=== PATIENT | male | born 1990 | race African-American/Black ===

== ENCOUNTER 2018-06-11 08:24 | Emergency (ER) | payer SELFPAY ==
[2018-06-11] MEDS ORDERED: CEFTRIAXONE INJ 250 MG VIAL IM ONE (09:02)
[2018-06-11] MEDS ORDERED: LIDOCAINE 1% INJ-PF (10 MG/ML) 30 ML SDV INJ ONE (09:03)
[2018-06-11] MEDS ORDERED: AZITHROMYCIN 250 MG TABLET PO ONE (09:03)
[2018-06-11 10:11] LABS: APPEARANCE,URINE CLOUDY; BILIRUBIN,URINE NEGATIVE (NEGATIVE); COLOR,URINE YELLOW; GLUCOSE, URINE NEGATIVE (NEGATIVE); KETONES,URINE NEGATIVE (NEGATIVE); LEUKOCYTE ESTERASE,URINE LARGE (NEGATIVE); NITRITE,URINE NEGATIVE (NEGATIVE); PROTEIN,URINE NEGATIVE (NEGATIVE); URINE SPECIFIC GRAVITY 1.028
--- NOTE | 2018-06-11 10:11 | ER Document Report ---
HPI - HPI Patient complains to provider of: Penile discharge Onset: Other - 4 days Onset/Duration: Persistent Quality of pain: Burning Pain Level: 4 Context: Patient complains of burning with urination and penile discharge. Patient states he is worried he may have gonorrhea. Associated Symptoms: denies: Fever, Nausea, Vomiting Exacerbated by: Denies Relieved by: Denies Similar symptoms previously: Yes Recently seen / treated by doctor: No - ROS ROS below otherwise negative: Yes Systems Reviewed and Negative: Yes All other systems reviewed and negative - CONSTITUTIONAL Constitutional: DENIES: Fever, Chills - EENT EENT: DENIES: Sore Throat - URINARY Urinary: REPORTS: Dysuria - REPRODUCTIVE Notes: Penile discharge - DERM Skin Color: Normal Skin Problems: None Past Medical History - General Information source: Patient - Social History Smoking Status: Never Smoker Chew tobacco use (# tins/day): No Frequency of alcohol use: None Drug Abuse: None Occupation: [employer] Family History: Reviewed & Not Pertinent Patient has suicidal ideation: No Patient has homicidal ideation: No Endocrine Medical History: Denies: Hx Diabetes Mellitus Type 1, Hx Diabetes Mellitus Type 2 Renal/ Medical History: Denies: Hx Peritoneal Dialysis Musculoskeletal Medical History: Reports Hx Musculoskeletal Deformity, Reports Hx Musculoskeletal Trauma Skin Medical History: Reports Hx Cellulitis Traumatic Medical History: Reports: Hx Fractures Past Surgical History: Reports: Hx Orthopedic Surgery - L knee surgery - Immunizations Immunizations up to date: Yes Hx Diphtheria, Pertussis, Tetanus Vaccination: Yes - 2011-per patient Vertical Provider Document - CONSTITUTIONAL Agree With Documented VS: Yes Exam Limitations: No Limitations General Appearance: WD/WN, No Apparent Distress - INFECTION CONTROL TRAVEL OUTSIDE OF THE [place] IN LAST 30 DAYS: No - HEENT HEENT: Atraumatic, Normocephalic - NECK Neck: Normal Inspection, Supple - RESPIRATORY Respiratory: Breath Sounds Normal, No Respiratory Distress - CARDIOVASCULAR Cardiovascular: Regular Rate, Regular Rhythm - GI/ABDOMEN Gastrointestinal: Abdomen Soft, Abdomen Non-Tender - REPRODUCTIVE Male Genitalia: Normal Inspection Notes: Normal cremasteric reflex, no obvious penile discharge, no inguinal lymphadenopathy. RN as standby - BACK Back: Normal Inspection - MUSCULOSKELETAL/EXTREMETIES Musculoskeletal/Extremeties: MAEW, FROM - NEURO Level of Consciousness: Awake, Alert, Appropriate Motor/Sensory: No Motor Deficit - DERM Integumentary: Warm, Dry, No Rash Course - Vital Signs Vital signs: Temp Pulse Resp BP Pulse Ox 97.4 F 59 L 12 128/71 H 99 06/11/18 08:28 06/11/18 08:28 06/11/18 08:28 06/11/18 08:28 06/11/18 08:28 - Laboratory Laboratory results interpreted by me: 06/11/18 14:49 Labs- Entire Visit 06/11/18 06/11/18 09:45 09:45 Urine Color YELLOW Urine Appearance CLOUDY Urine pH 6.0 Ur Specific [place] 1.028 Urine Protein NEGATIVE Urine Glucose (UA) NEGATIVE Urine Ketones NEGATIVE Urine Blood NEGATIVE Urine Nitrite NEGATIVE Urine Bilirubin NEGATIVE Urine Urobilinogen 4.0 H Ur Leukocyte Esterase LARGE H Urine WBC (Auto) >182 Urine RBC (Auto) 13 Urine Mucus (Auto) MOD Urine Ascorbic Acid NEGATIVE Chlamydia DNA (PCR) NOT DETECTED N.gonorrhoeae DNA (PCR) DETECTED H Discharge - Discharge Clinical Impression: Penile discharge, Concern about STD in male without diagnosis UTI (urinary tract infection) Qualifiers: Urinary tract infection type: site unspecified Hematuria presence: without hematuria Qualified Code(s): N39.0 - Urinary tract infection, site not specified Condition: Stable Disposition: HOME, SELF-CARE Instructions: Azithromycin ([facility]), Rocephin ([facility]) Additional Instructions: Return immediately for any new or worsening symptoms Followup with your primary care provider, call tomorrow to make a followup appointment Cultures are pending, we will call if you need any different treatment Prescriptions: Doxycycline Hyclate 100 mg PO BID #20 capsule Forms: Return to Work [facility] - Follow up as needed
[2018-06-11 11:02] VITALS: BP 126/74
[2018-06-11 11:36] LABS: CHLAM PCR NOT DETECTED (NOT DETECT); GON PCR DETECTED (NOT DETECT)
== END 2018-06-11 11:04 | disposition home or self-care (01) ==
LOC: ER 08:24
DX: N39.0 Urinary tract infection, site not specified (principal); R36.9 Urethral discharge, unspecified; R30.9 Painful micturition, unspecified; Z20.2 Contact with and (suspected) exposure to infections with a predominantly sexual mode of transmission
CPT/HCPCS: 99283; 96372; 87086; 81001; 87491; 87591; J3490; J0696

== ENCOUNTER 2020-06-16 17:56 | Emergency (ER) | payer SELFPAY ==
--- NOTE | 2020-06-16 20:28 | ER Document Report ---
ED Medical Screen (RME) - General Stated Complaint: SIDE AND GROIN PAIN Time Seen by Provider: 06/16/20 20:19 Mode of Arrival: Ambulatory Information source: Patient Notes: 29-year-old male patient presents emergency department chief complaint of left lower quadrant abdominal pain that radiates down into his left testicle. Patient reports this pain has been intermittent over the last week. He states that he was tackled playing football and he believes the person's knee went into his left lower quadrant. He denies any nausea, vomiting, diarrhea. Patient reports there is no pain right now but if he moves specific ways it hurts. Exam deferred until patient is in a room. However patient is in no acute distress and is alert and oriented and answering all questions appropriately. I have greeted and performed a rapid initial assessment of this patient. A comprehensive ED assessment and evaluation of the patient, analysis of test results and completion of the medical decision making process will be conducted by additional ED providers. I have specifically instructed the patient or family members with the patient to immediately return to any nursing staff should anything change in the patient's condition or with their chief complaint. TRAVEL OUTSIDE OF THE [place] IN LAST 30 DAYS: No - Related Data Allergies/Adverse Reactions: No Known Allergies Allergy (Verified 06/11/18 08:25) Past Medical History - Social History Family history: DM, Hypertension. denies: Arthritis, CAD, CVA, Hyperlipidemia, Malignancy, Thyroid Disfunction Endocrine Medical History: Denies: Hx Diabetes Mellitus Type 1, Hx Diabetes Mellitus Type 2 Renal/ Medical History: Denies: Hx Peritoneal Dialysis Musculoskeltal Medical History: Reports Hx Musculoskeletal Deformity, Reports Hx Musculoskeletal Trauma Skin Medical History: Reports Hx Cellulitis Traumatic Medical History: Reports: Hx Fractures Past Surgical History: Reports: Hx Orthopedic Surgery - L knee surgery - Immunizations Immunizations up to date: Yes Hx Diphtheria, Pertussis, Tetanus Vaccination: Yes - 2011-per patient Physical Exam - Vital signs Vitals: Temp Pulse Resp BP Pulse Ox 98.1 F 75 16 125/72 97 06/16/20 18:47 06/16/20 18:47 06/16/20 18:47 06/16/20 18:47 06/16/20 18:47 Course - Vital Signs Vital signs: Temp Pulse Resp BP Pulse Ox 98.1 F 75 16 125/72 97 06/16/20 18:47 06/16/20 18:47 06/16/20 18:47 06/16/20 18:47 06/16/20 18:47
[2020-06-16 21:08] LABS: APPEARANCE,URINE CLEAR; BILIRUBIN,URINE NEGATIVE (NEGATIVE); COLOR,URINE YELLOW; GLUCOSE, URINE NEGATIVE (NEGATIVE); KETONES,URINE NEGATIVE (NEGATIVE); LEUKOCYTE ESTERASE,URINE NEGATIVE (NEGATIVE); NITRITE,URINE NEGATIVE (NEGATIVE); PROTEIN,URINE NEGATIVE (NEGATIVE); URINE SPECIFIC GRAVITY 1.031
--- NOTE | 2020-06-16 21:22 | RADIOLOGY REPORT (SQ) ---
EXAM DESCRIPTION: US SCROTUM COMPLETED DATE/TME: 06/16/2020 20:24 CLINICAL HISTORY: 29 years, Male, left testicular and left lower quadrant pain after football injury COMPARISON: None. TECHNIQUE: LIMITATIONS: None. FINDINGS: There are no focal masses within the testicles. No evidence of testicular hematoma. No evidence of testicular torsion. There is bilateral testicular microlithiasis. There is a small left hydrocele. No evidence of epididymitis. There is a small right epididymal cyst. IMPRESSION: Bilateral testicular microlithiasis. Small left hydrocele. copyright 2010 [employer]- All Rights Reserved
[2020-06-16] MEDS ORDERED: HYDROCODONE/ACETAMINOPHEN 5-325 MG (6 TAB/ER DISP) PO PRN (23:43)
--- NOTE | 2020-06-16 23:46 | ER Document Report ---
ED GI/ - General Chief Complaint: Flank Pain Stated Complaint: SIDE AND GROIN PAIN Time Seen by Provider: 06/16/20 20:19 Primary Care Provider: KEVIN BORJAS [Provider Group] - 06/19/20 Mode of Arrival: Ambulatory Notes: Patient is a 29-year-old male who presents emergency department with a chief complaint of left lateral and side pain that radiates down to his left testicle. Patient states that about 5 to 6 days ago he is playing football for [employer] team and got hit on his left lateral hip. Patient states that since then, he has had on and off pain that starts in his left hip and radiates down to his left testicle. Patient is able to urinate. TRAVEL OUTSIDE OF THE [place] IN LAST 30 DAYS: No - Related Data Allergies/Adverse Reactions: No Known Allergies Allergy (Verified 06/11/18 08:25) Past Medical History - General Information source: Patient - Social History Smoking Status: Unknown if Ever Smoked Chew tobacco use (# tins/day): No Frequency of alcohol use: None Drug Abuse: None Family History: Reviewed & Not Pertinent Patient has homicidal ideation: No Endocrine Medical History: Denies: Hx Diabetes Mellitus Type 1, Hx Diabetes Mellitus Type 2 Renal/ Medical History: Denies: Hx Peritoneal Dialysis Musculoskeletal Medical History: Reports Hx Musculoskeletal Deformity, Reports Hx Musculoskeletal Trauma Skin Medical History: Reports Hx Cellulitis Traumatic Medical History: Reports: Hx Fractures Past Surgical History: Reports: Hx Orthopedic Surgery - L knee surgery - Immunizations Immunizations up to date: Yes Hx Diphtheria, Pertussis, Tetanus Vaccination: Yes - 2011-per patient Review of Systems - Review of Systems Notes: REVIEW OF SYSTEMS: CONSTITUTIONAL : Denies recent illness. Denies recent unintentional weight loss. Denies fever, chills, or sweats. EENT: Denies eye, ear, throat, or mouth pain, discharge, or symptoms. Denies nasal or sinus congestion. CARDIOVASCULAR: Denies chest pain. RESPIRATORY: Denies shortness of breath, cough, congestion, difficulty breathing, or wheezing. GASTROINTESTINAL: Denies nausea, vomiting, and diarrhea. Denies constipation. See HPI. GENITOURINARY: See HPI. MUSCULOSKELETAL: Denies neck and back pain. Denies joint pain or swelling. SKIN: Denies rash, itchiness, or lesions HEMATOLOGIC : Denies easy bruising or bleeding. LYMPHATIC: Denies swollen, painful, enlarged glands. NEUROLOGICAL: Denies no numbness or tingling denies weakness. Denies headache. Denies altered mental status. Denies alteration in speech. PSYCHIATRIC: Denies stress, anxiety, alteration in sleep patterns, or depression. All other systems reviewed and negative. Physical Exam - Vital signs Vitals: Temp 98.1 F 06/16/20 17:57 - Notes Notes: PHYSICAL EXAMINATION: GENERAL: Appears well, healthy, well-nourished, no acute distress. HEAD: Normocephalic, atraumatic. EYES: PERRL, conjunctiva normal, all extraocular movements intact, sclera nonicteric ENT: Moist mucous membranes. NECK: Supple, no noticeable swelling, redness, rash. Normal range of motion. LUNGS: Equal breath sounds bilaterally and clear to auscultation. No wheezes rales or rhonchi. CARDIOVASCULAR: S1-S2, regular rate, regular rhythm. Radial pulses 2+, normal. ABDOMEN: Normoactive bowel sounds. Soft, nontender, no guarding, no rebound tenderness, and no masses palpated. EXTREMITIES: Normal strength and range of motion, no pitting or edema. No cyanosis. NEUROLOGICAL: Moves all extremities upon command. Strength 5/5 in all extremities. PSYCH: Normal mood, normal affect. SKIN: Warm, dry. No rash, lesions, ulcerations noted. Normal skin turgor. REPRODUCTIVE: Normal cremasteric reflex. No hernia noted bilaterally. Left testicle slightly bigger than right. Course - Re-evaluation Re-evalutation: 06/16/20 23:42 ZIYAD Roca at bedside for testicular exam. No hernia noted on both sides. Urinalysis is unremarkable. Ultrasound shows testicular microlithiasis. He also has a left hydrocele. Instructed the patient to wear supportive underwear and to follow-up with urology. Advised the patient that I would like to him to have a CT of the abdomen and pelvis, but he states that he would like to leave. Discussed the risks of leaving without a CT of the abdomen pelvis. Patient agrees to follow-up with urology. Follow-up precautions were given. Verbal discharge instructions were given to the patient. They verbalized unde rstanding. They are stable for discharge. - Vital Signs Vital signs: Temp Pulse Resp BP Pulse Ox 98.4 F 60 14 129/83 H 99 06/17/20 00:15 06/17/20 00:15 06/17/20 00:15 06/17/20 00:15 06/17/20 00:15 - Laboratory Laboratory results interpreted by me: 06/16/20 20:30 Urine Urobilinogen 2.0 H Urine Ascorbic Acid 40 H Discharge - Discharge Clinical Impression: Testicular pain, left, Testicular microlithiasis, Hydrocele, left Condition: Stable Disposition: HOME, SELF-CARE Additional Instructions: You were seen today in the emergency department for testicular pain after being hit during a football game on your left side. You have a small collection of fluid around your left testicle area. You also have a small amount of calc ifications noted in both your testicles. Please follow-up with urology on Friday. Wear supportive underwear to help with the hydrocele. I also recommended that you have a CT of the abdomen pelvis, but your choosing not to have this done and wanting to leave. Please be reevaluated by your team provider. If they also feel it is necessary that you have a CT of the abdomen pelvis, please do this right away. You are also being prescribed [place], medication for pain. You can take this as needed. This may make you drowsy. Did not drive or operate heavy machinery while on this medication. Prescriptions: Hydrocodone/Acetaminophen [[place] 5-325 mg Tablet] 1 tab PO ASDIR PRN #7 tablet PRN Reason: Referrals: [facility] [Provider Group] - 06/19/20
[2020-06-17 00:25] VITALS: BP 129/83
== END 2020-06-17 00:30 | disposition home or self-care (01) ==
LOC: ER 17:56
DX: N50.812 Left testicular pain (principal); N43.3 Hydrocele, unspecified; N50.89 Other specified disorders of the male genital organs; R10.32 Left lower quadrant pain; M25.552 Pain in left hip
CPT/HCPCS: 76870; 81001; 93976; 99284

== ENCOUNTER 2020-08-03 16:08 | Emergency (ER) | payer SELFPAY ==
[2020-08-03] MEDS ORDERED: CEFTRIAXONE INJ 250 MG VIAL IM ONE (16:42)
[2020-08-03] MEDS ORDERED: AZITHROMYCIN 250 MG TABLET PO ONE (16:42)
[2020-08-03] MEDS ORDERED: LIDOCAINE 1% INJ-PF (10 MG/ML) 30 ML SDV NEB ONE (16:42)
--- NOTE | 2020-08-03 16:42 | ER Document Report ---
HPI - HPI Patient complains to provider of: dysuria Time Seen by Provider: 08/03/20 16:38 Context: 29-year-old male with no previous medical problems presents to the emergency room complaining of dysuria that started last night. Recent new sexual partner without protection. Partner asymptomatic. History of trichomonas several years ago. No other STD history or exposures. Associated Symptoms: None Exacerbated by: Denies Relieved by: Denies Similar symptoms previously: No Recently seen / treated by doctor: No - ROS Systems Reviewed and Negative: Yes All other systems reviewed and negative - CONSTITUTIONAL Constitutional: DENIES: Fever, Chills - GASTROINTESTINAL Gastrointestinal: DENIES: Abdominal Pain, Nausea, Patient vomiting - URINARY Urinary: REPORTS: Dysuria - DERM Skin Color: Normal, [employer] Skin Problems: None Past Medical History - General Information source: Patient - Social History Smoking Status: Never Smoker Frequency of alcohol use: Occasional Drug Abuse: None Family History: Reviewed & Not Pertinent Endocrine Medical History: Denies: Hx Diabetes Mellitus Type 1, Hx Diabetes Mellitus Type 2 Renal/ Medical History: Denies: Hx Peritoneal Dialysis Musculoskeletal Medical History: Reports Hx Musculoskeletal Deformity, Reports Hx Musculoskeletal Trauma Skin Medical History: Reports Hx Cellulitis Traumatic Medical History: Reports: Hx Fractures Past Surgical History: Reports: Hx Orthopedic Surgery - L knee surgery - Immunizations Immunizations up to date: Yes Hx Diphtheria, Pertussis, Tetanus Vaccination: Yes - 2011-per patient Vertical Provider Document - CONSTITUTIONAL Agree With Documented VS: Yes Exam Limitations: No Limitations General Appearance: No Apparent Distress - INFECTION CONTROL TRAVEL OUTSIDE OF THE [place] IN LAST 30 DAYS: No - HEENT HEENT: Atraumatic, Normocephalic - NECK Neck: Normal Inspection, Supple, Thyroid Normal - RESPIRATORY Respiratory: Breath Sounds Normal, No Respiratory Distress - CARDIOVASCULAR Cardiovascular: Regular Rate, Regular Rhythm, No Murmur - GI/ABDOMEN Gastrointestinal: Abdomen Soft, Abdomen Non-Tender, No Organomegaly, Normal Bowel Sounds - REPRODUCTIVE Male Genitalia: Normal Inspection Notes: Chaperoned by Dimitri LEON - BACK Back: Normal Inspection. negative: CVA Tenderness-Right, CVA Tenderness-Left - MUSCULOSKELETAL/EXTREMETIES Musculoskeletal/Extremeties: FROM - NEURO Level of Consciousness: Awake, Alert, Appropriate Motor/Sensory: No Motor Deficit, No Sensory Deficit - DERM Integumentary: Warm, Dry, No Rash Course - Re-evaluation Re-evalutation: 08/03/20 17:38 Reviewed urinalysis with patient. Aware that he will be notified if his gonorrhea and/or chlamydia are positive. Patient will be treated presumptively for both gonorrhea and chlamydia prior to discharge. Was counseled on no sexual activity until he gets results of his gonorrhea and chlamydia. Patient was denton cisneros strict return to the emergency room guidelines. Return for any new or worsening symptoms. All questions were answered. Patient verbalized understanding and agrees with plan of care. - Vital Signs Vital signs: Temp Pulse Resp BP Pulse Ox 98.5 F 82 16 135/70 H 100 08/03/20 16:11 08/03/20 16:11 08/03/20 16:11 08/03/20 16:11 08/03/20 16:11 Discharge - Discharge Clinical Impression: Dysuria Condition: Stable Disposition: HOME, SELF-CARE Instructions: Urethritis ([facility]) Additional Instructions: You will be notified of your gonorrhea and Chlamydia test results. Activity until you receive your test results. You were treated presumptively for both gonorrhea and chlamydia. Outpatient follow-up with health department if not improving in 2 to 3 days. Return to the emergency room for any new or worsening symptoms. [facility] - Follow up as needed
[2020-08-03 17:17] LABS: APPEARANCE,URINE SLIGHTLY-CLOUDY; BILIRUBIN,URINE NEGATIVE (NEGATIVE); COLOR,URINE YELLOW; GLUCOSE, URINE NEGATIVE (NEGATIVE); KETONES,URINE NEGATIVE (NEGATIVE); LEUKOCYTE ESTERASE,URINE NEGATIVE (NEGATIVE); NITRITE,URINE NEGATIVE (NEGATIVE); PROTEIN,URINE 30 mg/dL (NEGATIVE); URINE SPECIFIC GRAVITY 1.027
[2020-08-03 18:38] VITALS: BP 124/68
[2020-08-03 18:41] LABS: CHLAM PCR DETECTED (NOT DETECT)
== END 2020-08-03 18:20 | disposition home or self-care (01) ==
LOC: ER 16:08
DX: A56.8 Sexually transmitted chlamydial infection of other sites (principal); R30.0 Dysuria
CPT/HCPCS: 99284; 96372; 81001; 87491; 87591; J3490; J0696